=== PATIENT | male | born 1980 | race Caucasian/White ===

== ENCOUNTER → 2020-03-09 08:48 | Outpatient (CLI) | payer MEDICAID, SELFPAY ==
--- NOTE | 2020-03-09 08:54 | RAD_ITS ---
STUDY: X-RAY - UNILATERAL RIBS ( LEFT ) WITH CHEST REASON FOR EXAM: Male, 40 years old. Left side rib pain, slid in softball game 12 days ago TECHNIQUE - RIBS: 4 view(s) of the ribs. TECHNIQUE - CHEST: Single PA view of the chest. COMPARISON: None. FINDINGS - RIBS: Normal visualized ribs without a demonstrated fracture. FINDINGS - CHEST: The lungs are clear and expanded. There is no demonstrated pleural abnormality. Normal size heart. Normal mediastinum and corin. Normal visualized pulmonary arteries. Normal visualized aortic arch and descending thoracic aorta. Normal visualized thoracic spine. Normal visualized ribs, clavicles, and shoulders. There is no demonstrated abnormality of the visualized soft tissue structures of the upper abdomen. RAD/Ribs Uni Min 3V w/PA Chest IMPRESSION: RIBS: Normal x-ray examination of the ribs. CHEST: Normal x-ray examination of the chest. Electronically Signed: Rafa Sahu MD at 11:44 EDT , Service support ,
== END ==
PROVIDERS: PCP Family Medicine; Referring Provider Family Medicine; Visit Provider Family Medicine
DX: R07.81 Pleurodynia (principal)
CPT/HCPCS: 71101

== ENCOUNTER 2020-04-27 08:00 | Day surgery (SDC) | payer MEDICAID, SELFPAY ==
[2020-03-28 08:00] VITALS: BMI 25.2
[2020-04-27] VITALS (8 sets, daily range): BP systolic 79–114; BP diastolic 50–78; PULSE 69–81; RESP 16–18; TEMP 36.8–37.3; O2SAT 93–100; BMI 24.3
--- NOTE | 2020-04-27 | GASB_PTH ---
PATIENT: BIRDIE SIDDIQI LOC: EN U#:[id number] AGE/SX: 40/M ROOM: RE04/27/[address]: Dr. Segun Phan MD : 1980 BED: DIS: 04/27/2020 SPEC #: [id number] RECD: 04/27/20 11:43 STATUS: WINDY AGUILAR #: [id number] AALIYAH: 04/27/20 00:[address]: Segun Phan DEPT: SURGICAL PATHOLOGY RECD BY: Sonny Blevins ENTERED: 04/27/20 11:43 SP TYPE: Gastric Bx OTHR DR: Dr. Mekhi Timmons MD Tissues: Gastric mucous membrane Procedures: Special Stain Group II Surgery Specimen Level IV Alcian Blue/PAS (control) HEADER OPERATION: EGD ([facility]) PRE-OP DIAGNOSIS: Esophageal dysphagia TISSUE SUBMITTED: Biopsy of GE junction MICROSCOPIC DIAGNOSIS Gastroesophageal junction, biopsy: Chronic inflammation. Focal changes of reflux. No evidence of goblet cell metaplasia. See comment. SJ:chaz 04/30/20 COMMENT Alcian blue/PAS stain with matched control supports the above diagnosis. MICROSCOPIC DESCRIPTION Slides are reviewed. GROSS DESCRIPTION Received in fixative is one container labeled with the patient's name and designated GE junction biopsy. The specimen consists of multiple irregular fragments of light lyle soft tissue that in aggregate measure 0.6 x 0.2 x 0.1 cm. The specimen is totally submitted in one cassette. / AM:chaz 04/27/20 TC:3 CPT: 98950, 28799
--- NOTE | 2020-04-27 07:36 | HP_ITS ---
Intake Vital Signs 03/28/20 Height 5 ft 10 in 03/28/20 Weight: 176 lb 03/28/20 BMI 25.2 03/28/20 BP 119/80 03/28/20 Blood Pressure Location Rt brachial 03/28/20 Position Sitting 03/28/20 Respiration 18 Intake Visit Reasons: EGD Chief Complaint: egd Hhas Required: No Is patient in pain?: No Allergies No Known Allergies Allergy (Unverified 03/28/20 08:01) Medications cetirizine 10 mg capsule 10 mg PO DAILY 03/28/20 [History Confirmed 03/28/20] metoprolol tartrate 25 mg tablet tab PO 03/28/20 [History Confirmed 03/28/20] omeprazole 40 mg capsule,delayed release 40 mg PO DAILY #30 cap 03/28/20 [Rx Confirmed 03/28/20] PFSH Medical History (Updated 03/28/20 @ 08:00 by Nafisa Thomas) Anxiety (Acute) Diverticulitis (Acute) HTN (hypertension) (Chronic) Surgical History (Updated 03/28/20 @ 08:00 by Nafisa Thomas) S/P tonsillectomy (Acute) Social History (Updated 03/28/20 @ 08:[address] Segun Phan MD) Smoking Status: Never smoker alcohol intake: current alcohol intake frequency: a few times a month HPI HPI HPI: BIRDIE SIDDIQI, is a 40 M who presents to the office today for HPI HPI Surgical H&P: Yes HPI: BIRDIE SIDDIQI, is a 40 M who presents to the office today for Dysphagia. The patient reports that he has had this happen about 10 times in the last year it is happening more frequently over the last couple months. He reports he feels like things are sticking and needs a drink carbonated beverages to get them to go down. He when this happens he gets short of breath and becomes flushed. He was on a PPI years ago for acid reflux but since he lost weight he has stopped his PPI. He does not report GERD on a regular basis. ROS General General: Yes fatigue; no weight change Cardio Cardiovascular: Yes high blood pressure; no murmur, pacemaker, heart disease, atrial fibrillation, heart attack, heart stent, palpitations, shortness of breat with exertion or chest pain Psych Psychiatric: Yes depression and anxiety Resp Respiratory: No shortness of breath, No sleep apnea, No cough, No COPD, No asthma, No emphysema, No wheezing Gastro Gastrointestinal: No abdominal pain, No nausea or vomiting, Yes diarrhea, Yes constipation, No blood in stool, Yes acid reflux, Yes hemorrhoids, No ulcers, No gallbladder problem, No black,tarry stools Eric Hematologic: No blood thinners Exam Const General: cooperative Orientation: alert, oriented x3 Resp Effort & Inspection: normal respiratory effort Auscultation: clear to auscultation bilaterally Cardio Rate: regular rate Rhythm: regular rhythm Heart Sounds: no murmurs GI Inspection: non-distended Palpation: soft, nontender Assessment & Plan Problems 1. Esophageal dysphagia R13.10 Plan Patient is having symptoms of dysphagia. I recommend EGD to evaluate and possibly perform dilation. I discussed this with him in detail as well as the increased risk of perforation or bleeding. I have also given the patient a PPI to take in the interim in case this is due to esophagitis and GERD that is asymptomatic. I explained endoscopy in detail to the patient. I explained the risks including but not limited to stroke or heart attack with anesthesia, perforation of the GI tract, bleeding, infection. I explained that any of these could necessitate further emergency surgery. The patient understands and all questions were answered sufficiently. The patient wishes to proceed with procedure. We discussed the current risks associated with COVID-19. While it is understood that there is a community spread of COVID-19, the risk of filoemna COVID-19 while at [facility] ([facility]) is very low; however, the risk cannot be completely mitigated because of the community spread of the disease. We discussed in detail the risk of exposure to and/or potential harm posed by the COVID-19 virus with having a surgery/procedure at this time versus the risk of delaying the surgery/procedure. It is not possible to know either the risk of delaying the surgery or procedure or chance of getting an infection with perfect accuracy, but a joint decision was made to proceed at this time with the scheduled surgery/procedure as indicated on the consent form. Patient was notified that we will need to comply with any screening or testing [facility] wishes to perform or that surgery may be delayed for any positive results. Segun Phan MD Pager: [facility] [address] [place] [address], [address] [place] [phone] Office: Orders Orders: EGD Today R13.10 Medications New: omeprazole 40 mg PO DAILY 30 caps 2RF Coding Level of Care Code Off vis,new,level 3 Diagnoses Esophageal dysphagia R13.10 ??Dysphagia type: esophageal phase I have re-examined the patient. There are no clinical changes since date of exam.
[2020-04-27] MEDS: Lactated Ringers 1,000 ML 100 ML IV (08:29)
--- NOTE | 2020-04-27 09:37 | OP.EGD_ITS ---
Patient Name: Maco Proctor Procedure Date: 04/27/2020 9:14 AM Date of : 1980 Age: 40 Procedure: Upper GI endoscopy Indications: Dysphagia Providers: Segun Phan MD Referring MD: Mekhi Timmons MD Medicines: Monitored Anesthesia Care Patient Profile: This is a 40 year old male. Refer to note in patient chart for documentation of history and physical. Complications: No immediate complications. Estimated blood loss: Minimal. Procedure: Pre-Anesthesia Assessment: - Prior to the procedure, a History and Physical was performed, and patient medications and allergies were reviewed. The patient's tolerance of previous anesthesia was also reviewed. The risks and benefits of the procedure and the sedation options and risks were discussed with the patient. All questions were answered, and informed consent was obtained. Prior Anticoagulants: The patient has taken no previous anticoagulant or antiplatelet agents. After reviewing the risks and benefits, the patient was deemed in satisfactory condition to undergo the procedure. After obtaining informed consent, the endoscope was passed under direct vision. Throughout the procedure, the patient's blood pressure, pulse, and oxygen saturations were monitored continuously. The Endoscope was introduced through the mouth, and advanced to the second part of duodenum. The upper GI endoscopy was accomplished without difficulty. The patient tolerated the procedure well. Scope In: 9:29:00 AM Scope Out: 9:31:33 AM Total Procedure Duration Time 0 hours 2 minutes 33 seconds Findings: Esophagitis with no bleeding was found at the gastroesophageal junction. Biopsies were taken with a cold forceps for histology. The stomach was normal. The examined duodenum was normal. Impression: - Reflux esophagitis. Biopsied. - Normal stomach. - Normal examined duodenum. Recommendation: - Discharge patient to home. - Resume previous diet. - Continue present medications. - Await pathology results. Procedure Code(s): --- Professional --- 54858, Esophagogastroduodenoscopy, flexible, transoral; with biopsy, single or multiple Diagnosis Code(s): --- Professional --- K21.0, Gastro-esophageal reflux disease with esophagitis R13.10, Dysphagia, unspecified CPT copyright 2017 [employer]. All rights reserved. The codes documented in this report are preliminary and upon hand trucker review may be revised to meet current compliance requirements. Segun Phan MD 04/27/2020 9:37:21 AM This report has been signed electronically. Number of Addenda: 0 Note Initiated On: 04/27/2020 9:14 AM
--- NOTE | 2020-04-27 09:38 | OP.CCLET_ITS ---
04/27/2020 Mekhi Timmons MD [address] [phone] Re : Upper GI endoscopy procedure for Maco Proctor Dear Dr. Timmons This procedure was performed on Monday, April 27, 2020. My impressions and recommendations are as follows: Impressions : - Reflux esophagitis. Biopsied. - Normal stomach. - Normal examined duodenum. Recommendations : - Discharge patient to home. - Resume previous diet. - Continue present medications. - Await pathology results. My findings are described in the full procedure note, which is enclosed. If I can be of further assistance, please feel free to contact me at Doctor phone number(s): , Work: . Sincerely, Segun Phan MD 04/27/2020 9:37:21 AM This report has been signed electronically.
== END 2020-04-27 10:32 | disposition home or self-care (01) ==
LOC: EN 08:01 → AC 08:01
PROVIDERS: PCP Family Medicine; Referring Provider Family Medicine; Visit Provider Surgery
PROC: 0DJ08ZZ Inspection of Upper Intestinal Tract, Via Natural or Artificial Opening Endoscopic (ICD-10-PCS; CPT 43235; principal; 2020-04-27 08:55)
DX: K21.00 Gastro-esophageal reflux disease with esophagitis, without bleeding (principal); R13.10 Dysphagia, unspecified; Z20.828 Contact with and (suspected) exposure to other viral communicable diseases; I10 Essential (primary) hypertension; Z79.899 Other long term (current) drug therapy; Z87.19 Personal history of other diseases of the digestive system
CPT/HCPCS: 43239; 87426; 88305; 88313; C9803; J7120; J2405

== ENCOUNTER 2020-12-23 22:57 | Emergency (ER) | payer MEDICAID, SELFPAY ==
[2020-04-27 08:21] VITALS: BMI 24.3
[2020-12-23 22:59] VITALS: BP 125/99; PULSE 87; RESP 15; TEMP 37; BMI 25.8
[2020-12-24 00:53] VITALS: O2SAT 98
--- NOTE | 2020-12-24 01:22 | CT_ITS ---
STUDY: CT BRAIN WITHOUT CONTRAST REASON FOR EXAM: Male, 40 years old. Head injury RADIATION DOSAGE (If Supplied By Facility): CTDIvol = ( 44.99 ) mGy, DLP = ( 846.73 ) mGycm TECHNIQUE: Transaxial CT imaging of the brain was performed without administration of intravenous contrast material. Individualized dose optimization techniques were used for this CT. COMPARISON: No relevant priors. FINDINGS: There is a right posterior scalp contusion. Normal calvarium. Normal size ventricles and extra-axial spaces for the patient''s age. Normal white matter tracts of the cerebral hemispheres. Normal basal ganglia and thalami. Normal brainstem. Normal cerebellum. There is no intracranial hemorrhage. There are no findings of an acute ischemic infarction. There is opacification of the right maxillary sinus which is likely to be chronic. There is no evidence for acute sinusitis. CT/Brain/Head without Contrast IMPRESSION: Normal unenhanced CT scan of the brain. Electronically Signed: Colin Golden MD at 2:27 EDT , Service support ,
--- NOTE | 2020-12-24 01:22 | RAD_ITS ---
STUDY: X-RAY - UNILATERAL RIBS ( RIGHT ) WITH CHEST REASON FOR EXAM: Male, 40 years old. Fall TECHNIQUE - RIBS: 4 view(s) of the ribs. TECHNIQUE - CHEST: Single AP portable view of the chest. COMPARISON: None. FINDINGS - RIBS: Normal visualized ribs without a demonstrated fracture. FINDINGS - CHEST: The lungs are clear and expanded. There is no demonstrated pleural abnormality. Normal size heart. Normal mediastinum and corin. Normal visualized pulmonary arteries. Normal visualized aortic arch and descending thoracic aorta. Normal visualized thoracic spine. Normal visualized ribs, clavicles, and shoulders. There is no demonstrated abnormality of the visualized soft tissue structures of the upper abdomen. RAD/Ribs Uni Min 3V w/PA Chest IMPRESSION: RIBS: No distinct right rib fractures. CHEST: Normal x-ray examination of the chest. Electronically Signed: Radha Guaman MD at 1:54 EDT , Service support ,
--- NOTE | 2020-12-24 01:25 | EX.ED.GENINJ ---
HPI History of Present Illness Chief Complaint: Head Injury Informant: patient Onset/Context/Timing Onset: Today Mechanism/Context: Fall Current Severity: Gone Worsened by: Nothing Relieved by: Nothing Associated Symptoms Associated Symptoms: Positive for Loss of consciousness; Negative for Parasthesias and Weakness Length of loss of consciousness: Unknown but brief Narrative Narrative: Patient presents with a head injury that occurred today approximately 19 hours prior to arrival. Patient states he was sleepwalking when he fell down some steps. Patient hit the back of his head. Patient admits to some loss of consciousness. Patient also complains of pain in his right posterior ribs. Patient denies any headaches. Patient states he was told that he needed stitches in his head. Patient states his last tetanus was more than 10 years ago. Tetanus Immunization: >10 years PFSH PFS Medical History Anxiety Diverticulitis HTN (hypertension) Non-smoker Home Medications metoprolol tartrate 25 mg tablet 25 mg PO DAILY 03/28/20 [History Last Taken Unknown] fluoxetine 20 mg PO DAILY 12/24/20 [History Last Taken Unknown] Allergy/AdvReac Type Severity Reaction Status Date / Time No Known Allergies Allergy Unverified 12/23/20 23:03 Surgical History S/P tonsillectomy Social History Smoking Status: Never smoker alcohol intake: current alcohol intake frequency: a few times a month ROS ROS ED Constitutional Constitutional ED: Denies chills or fever(s) Eyes Eyes: Denies blurry vision or change in vision ENT ENT ED: Denies rhinorrhea or sore throat Cardiovascular Cardiovascular: Denies chest pain or palpitations Respiratory/Chest Respiratory/Chest: Denies cough or dyspnea Gastrointestinal Gastrointestinal: Reports nausea; Denies vomiting Genitourinary Genitourinary ED: Denies dysuria or hematuria Musculoskeletal Musculoskeletal: Reports back pain; Denies neck pain Integumentary Denies abscess or rash Neurologic Neurologic: Denies headache(s) or weakness Allergic/Immunologic Allergic/Immunologic ED: Denies mouth swelling or urticaria EXAM Physical Exam Const Vital Signs: 12/23/20 22:59 12/24/20 00:53 Temperature 98.6 F Temperature Source Temporal Pulse Rate 87 Respiratory Rate 15 Respiratory Effort Normal Respiratory Depth Normal Respiratory Pattern Normal Blood Pressure 125/99 H Blood Pressure Mean 107 Pulse Ox 98 Oxygen Delivery Method Room Air Room Air Positive well nourished and well developed General Appearance ED: well developed HEENT HEENT Narrative: There is a small hematoma in the right occipital area. There is a laceration over this area that is starting to heal. There is no active bleeding. There is no bony crepitance or step-off. There is no erythema or warmth. There is no discharge or drainage. tenderness Eyes PERRL and EOMs intact bilaterally Neck full ROM General: Negative for tenderness Resp normal respiratory effort and clear to auscultation bilaterally Cardio regular rhythm Rate: regular rate GI normal to inspection, nondistended, normoactive bowel sounds and non-tender Palpation: soft Back/Spine Back/Spine Narrative: There is some mild tenderness over the right lower ribs posteriorly. There is no bony crepitance or step-off. There is good range of motion of the thoracic and lumbar spine. Neuro oriented x3, CN's II-XII intact bilaterally, moves all extremities, no focal motor deficits and no sensory deficits noted Myrna Coma Scale: document GCS findings Spontaneous Obeys Commands Oriented 15 Sensorium / Orientation: alert Psych mental status grossly normal MDM MDM MDM Narrative Medical decision making narrative: Patient was given a tetanus booster. Patient was advised that too much time has elapsed to place any sutures or aundrea in his wound. Bacitracin dressing was applied. CT scan of the brain was obtained. There is no acute intracranial abnormality. This was interpreted by the radiologist and reviewed by myself. X-rays of the right ribs were obtained. There are 5 views. On my interpretation, there is no acute fracture. There is no pneumothorax. There is no other acute abnormality. Radiologist also interpreted the x-rays and agrees. Patient was advised of his findings. Patient was instructed to drink plenty of fluids. Patient was given head injury instructions. Patient was instructed to follow-up with his primary care physician in 5 to 7 days. Patient understood and was agreeable with the plan. All questions were answered. Radiography Diagnostic Testing: Radiology Impression Brain CT 12/24/20 01:22 IMPRESSION: Normal unenhanced CT scan of the brain. Electronically Signed: Colin Golden MD at 2:27 EDT , Service support , Ribs w/Chest X-Ray 12/24/20 01:22 IMPRESSION: RIBS: No distinct right rib fractures. CHEST: Normal x-ray examination of the chest. Electronically Signed: Radha Guaman MD at 1:54 EDT , Service support , Discharge Plan Triage Chief Complaint: Head Injury ED Provider: Juan Luis Hu Dx/Rx/DC Orders Clinical Impression: Concussion, Laceration of occipital scalp, Contusion of rib on right side Instructions: ED Concussion, ED Laceration, Old: Not Sutured, ED Contusion, Rib Prescriptions: No Action metoprolol tartrate 25 mg tablet 25 mg PO DAILY RF: 0 fluoxetine 20 mg capsule 20 mg PO DAILY RF: 0 Primary Care Provider: Mekhi Timmons Referrals: Mekhi Timmons MD [Primary Care Provider] - 3-5 Days Disposition Disposition: Home, Self Care
[2020-12-24] MEDS: Diphth,Pertuss(Acell),Tet Vac 0.5 ML Vial IM (01:54)
[2020-12-24 04:38] VITALS: BP 131/80; PULSE 65; RESP 16; O2SAT 98
== END 2020-12-24 04:59 | disposition home or self-care (01) ==
PROVIDERS: Emergency Provider Emergency Medicine; PCP Family Medicine
DX: S06.0X1A Concussion with loss of consciousness of 30 minutes or less, initial encounter (principal); S01.01XA Laceration without foreign body of scalp, initial encounter; S20.211A Contusion of right front wall of thorax, initial encounter; Z23 Encounter for immunization; F51.3 Sleepwalking [somnambulism]; W10.9XXA Fall (on) (from) unspecified stairs and steps, initial encounter; Y93.9 Activity, unspecified; Y92.9 Unspecified place or not applicable; Y99.9 Unspecified external cause status; I10 Essential (primary) hypertension; F41.9 Anxiety disorder, unspecified; Z79.899 Other long term (current) drug therapy
CPT/HCPCS: 70450; 71101; 90471; 90715; 99282

== ENCOUNTER → 2022-03-28 | Outpatient (CLI) | payer MEDICAID, SELFPAY ==
[2022-03-28 17:50] LABS: Absolute Lymphocyte Count 2.27 X10^3/uL (0.83-4.51); Absolute Neutrophil Count 4.3 X10^3/uL (2.0-7.7); Basophil# 0.06 X10^3/uL; Basophil% 0.8 % (0-1); Eosinophil# 0.17 X10^3/uL; Eosinophils% 2.3 % (0-5); Hematocrit 41.2 % (40-54); Hemoglobin 14.4 g/dL (13.0-16.5); Lymphocyte # 2.27 X10^3/ul (0.83-4.51); Lymphocyte % 30.7 % (19-41); Mean Corpuscular Hgb 30.8 pg (27.0-32.0); Mean Platelet Vol. 9.5 fl (6.2-12.0); Monocyte# 0.58 X10^3/uL; Monocyte% 7.8 % (0-10); NRBC Flagged by Analyzer 0 % (0-5); Neutrophil # 4.29 X10^3/uL (2.7-7.7); Neutrophil % 58.1 % (47-70); Platelet Count 285 K/mm3 (150-450); RBC Distribution Width SD 41.5 fl (35.1-43.9); Red Blood Count 4.68 M/mm3 (4.6-6.2); White Blood Count 7.4 K/mm3 (4.4-11.0)
[2022-03-28 18:33] LABS: AST(SGOT) 23 U/L (15-37); Alanine Aminotransfer ALT/SGPT 46 U/L (16-61); Albumin, Serum 3.9 g/dL (3.2-5.0); Alkaline Phosphatase 74 U/L (45-117); Anion Gap 6 (5-15); BUN 17 mg/dL (7-18); BUN/Creat Ratio 18.1 RATIO (10-20); Calcium,Total 8.6 mg/dL (8.5-10.1); Chloride 104 mmol/L (98-107); Creatinine, Serum 0.94 mg/dL (0.70-1.30); EST Glomerular Filtration Rate 94 mL/min (>60); Est Glom Filt Rate - Afr Amer 114 mL/min (>60); Glucose 97 mg/dL (74-106); Protein, Total 7.9 g/dL (6.4-8.2); Sodium Level 136 mmol/L (136-145)
== END | disposition home or self-care (01) ==
LOC: MFPLAB 15:56
PROVIDERS: PCP Family Medicine; Referring Provider Family Medicine; Visit Provider Family Medicine
DX: F32.A Depression, unspecified (principal)
CPT/HCPCS: 36415; 80053; 84403; 84443; 85025

== ENCOUNTER → 2022-06-19 | Outpatient (CLI) | payer MEDICAID, SELFPAY | END | disposition home or self-care (01) | LOC: SL 21:49 | PROVIDERS: PCP Family Medicine; Referring Provider Nurse Practitioner Acute Care; Visit Provider Nurse Practitioner Acute Care | DX: G47.10 Hypersomnia, unspecified (principal) | CPT/HCPCS: 95810 ==

== ENCOUNTER → 2022-08-19 | Outpatient (CLI) | payer MEDICAID, SELFPAY | END | disposition home or self-care (01) | LOC: SL 14:09 | PROVIDERS: PCP Family Medicine; Visit Provider Nurse Practitioner Acute Care | DX: Z00.00 Encounter for general adult medical examination without abnormal findings (principal) ==

== ENCOUNTER → 2023-03-12 | Outpatient (CLI) | payer OTHER, SELFPAY ==
--- NOTE | 2023-03-12 15:37 | RAD_ITS ---
INDICATION: Puncture wound of great toe EXAMINATION/TECHNIQUE: X-RAY - LEFT FOOT XR Toes Min 2 Views 3 VIEWS COMPARISON: FINDINGS: No acute fracture or dislocation. No destructive bone changes. Joint spaces are well-maintained. Normal alignment. Soft tissues are unremarkable. No radiopaque foreign body or soft tissue gas. RAD/Toe(s) Min 2 Views IMPRESSION: Negative. Electronically Signed: Ceci Neil MD at 17:11 EDT Reading Location ID and State: [id number] / Tel , Service support ,
== END | disposition home or self-care (01) ==
PROVIDERS: PCP Family Medicine; Referring Provider Physician Assistant Surgical; Visit Provider Physician Assistant Surgical
DX: S91.13 Puncture wound without foreign body of toe without damage to nail (principal); X58.XXXA Exposure to other specified factors, initial encounter
CPT/HCPCS: 73660